=== PATIENT | male | born 1930 | race Caucasian/White ===

== ENCOUNTER 2016-12-10 18:22 | Inpatient (IN) | payer OTHER, MEDICAID ==
[~2016-12-10] VITALS: Ht 170.2 cm; Wt 95.3 kg
--- NOTE | 2016-12-10 18:22 | NUR ---
Patient to ER bed 1 to gown for evaluation. Side rails up. Report given to Tiffany PEDRAZA.
--- NOTE | 2016-12-10 18:30 | NUR ---
[facility] for left hip pain 03/15 possible femur fracture. Patient has advanced dementia, poor historian, uncomprehensive sentences, appears to be bedbound, incontinent. 83-86% on room air. Patient placed on 2 L nasal cannula with increased to 94-96%. No acute distress.
--- NOTE | 2016-12-10 18:37 | NUR ---
ER MD Darnell at bedside for evaluation
[2016-12-10 18:41] VITALS: BP 189/82; PULSE 79; RESP 18; TEMP 97.6; O2SAT 95
[2016-12-10] MEDS ORDERED: DONE10TA44 PO (18:52)
[2016-12-10] MEDS ORDERED: CLOP75TA2 PO (18:52)
[2016-12-10] MEDS ORDERED: DIVA125C4 PO ×2 (18:52)
[2016-12-10] MEDS ORDERED: AMLO5TAB4 PO (18:52)
[2016-12-10] MEDS ORDERED: ACET-2165 PO (18:52)
[2016-12-10] MEDS ORDERED: MULT PO (18:52)
[2016-12-10] MEDS ORDERED: NA P118E RC (18:52)
[2016-12-10] MEDS ORDERED: ARTT OP (18:52)
[2016-12-10] MEDS ORDERED: DULR10 RC (18:52)
[2016-12-10] MEDS ORDERED: MAGN400O4 PO (18:52)
[2016-12-10] MEDS ORDERED: ASPI81TA2 PO (18:52)
[2016-12-10] MEDS ORDERED: LIP10 PO (18:52)
[2016-12-10] MEDS ORDERED: TAMS0.4C96 PO (18:52)
[2016-12-10] MEDS ORDERED: PSYL3.4P6 PO (18:52)
[2016-12-10] MEDS ORDERED: LOSA50TA3 PO (18:52)
[2016-12-10] MEDS ORDERED: BRI.2% OP (18:52)
--- NOTE | 2016-12-10 18:52 | NUR ---
Medication reconciliation completed with information provided by - list from facility. Any prior medication reconciliation on file was reviewed and corrected.
[2016-12-10 19:22] LABS: BASOPHILS # (AUTO) 0.1 K/uL (0.0-0.2); BASOPHILS % (AUTO) 0.5 % (0.0-2.0); EOSINOPHILS # (AUTO) 0.1 K/uL (0.0-0.4); EOSINOPHILS % (AUTO) 0.7 % (0.0-4.0); HEMATOCRIT 35.8 % (36-54); HEMOGLOBIN 12.2 g/dL (14.0-18.0); LYMPHOCYTES # (AUTO) 0.8 K/uL (1.0-5.5); LYMPHOCYTES % (AUTO) 6.4 % (20.5-51.5); MEAN CORPUSCULAR HEMOGLOBIN 27 pg (27-31); MEAN CORPUSCULAR HGB CONC 34 % (32-36); MEAN CORPUSCULAR VOLUME 78 fL (79.0-98.0); MONOCYTES # (AUTO) 1.4 K/uL (0.0-1.0); MONOCYTES % (AUTO) 11.5 % (1.7-9.3); NEUTROPHILS # (AUTO) 10.2 K/uL (1.8-7.7); NEUTROPHILS % (AUTO) 80.9 % (40.0-70.0); PLATELET COUNT (AUTO) 246 K/uL (130-430); RED BLOOD CELL COUNT(AUTO) 4.57 MIL/uL (4.2-6.2); RED CELL DISTRIBUTION WIDTH 15.2 % (9.0-15.0); WHITE BLOOD COUNT (AUTO) 12.6 K/uL (4.8-10.8)
[2016-12-10 19:45] LABS: ANION GAP 8 (5-15); CALCIUM 8.6 mg/dL (8.4-11.0); CHLORIDE 104 mmol/L (98-107); CREATININE 1.33 mg/dL (0.55-1.30); GLUCOSE 126 mg/dL (70-99); POTASSIUM 4.2 mmol/L (3.5-5.1); SODIUM SERUM 138 mmol/L (136-145); UREA NITROGEN, BLOOD 28 mg/dL (8-21)
[2016-12-10 19:50] LABS: ALANINE AMINOTRANSFERASE 33 U/L (12-78); ALBUMIN 3.7 g/dL (3.4-4.8); ASPARTATE AMINOTRANSFERASE 32 U/L (10-37); TOTAL BILIRUBIN 0.6 mg/dL (0.0-1.0); TOTAL PROTEIN, SERUM 7.9 g/dL (6.4-8.3)
--- NOTE | 2016-12-10 20:00 | NUR ---
ER MD aware of VS
[2016-12-10] MEDS ORDERED: hydrALAZINE HCL 20 MG/ML VIAL IVP ONE (20:15)
[2016-12-10] MEDS ORDERED: METOPROLOL TARTRATE 5 MG/5 ML VIAL ONE (20:40)
[2016-12-10] MEDS ORDERED: METOPROLOL TARTRATE 5 MG/5 ML VIAL IVP ONE ×2 (20:45)
[2016-12-10] MEDS ORDERED: METOPROLOL TARTRATE 5 MG/5 ML VIAL IVP PRN ×2 (20:45→21:00)
[2016-12-10] MEDS ORDERED: HYDROmorphone 2 MG/ML VIAL IVP PRN ×2 (20:45→21:00)
--- NOTE | 2016-12-10 20:45 | NUR ---
Patient will be admitted to care of DR VILLEGAS. Admitted to [facility] IN unit. Will go to room 135. Belongings list completed. Summary report printed. Report given to MILO.
--- NOTE | 2016-12-10 20:53 | NUR ---
Transfer to [facility]. IV present no sign or symptom of infiltration.
--- NOTE | 2016-12-10 21:10 | NUR ---
ADMIT NOTE Received pt from ER to the floor with a diagnosis of Left hip fracture. Admission process initiated. patient oriented to pain management, safety and call light-teach back done.
--- NOTE | 2016-12-10 21:15 | NUR ---
initial nursing notes: Patient is awake. Patient is oriented only to his name. Patient has a right forearm IV access. Kept siderails up X 3 for patient's safety.
[2016-12-10 21:25] VITALS: BP 202/93; PULSE 94; RESP 18; TEMP 97.8; O2SAT 91
[2016-12-10] MEDS ORDERED: BISACODYL 10 MG/SUPPOSITORY RC PRN (21:30)
[2016-12-10] MEDS ORDERED: ACETAMINOPHEN 325 MG TABLET PO PRN (21:30)
[2016-12-10] MEDS ORDERED: MILK OF MAGNESIA 30 ML UDC PO PRN (21:30)
[2016-12-10] MEDS ORDERED: TEARS ARTIFICIAL 15 ML DROPS OP PRN (21:30)
[2016-12-10] MEDS ORDERED: MORPHINE 2 MG/ML INJ. SYRINGE IVP PRN (21:30)
[2016-12-10] MEDS ORDERED: NA PHOS,M-B/NA PHOS,DI-BA 118 ML (FLEET ENEMA) RC PRN (21:30)
[2016-12-10] MEDS ORDERED: BRIMONIDINE TARTRATE 0.2% 5 mL EYE DROPS OP ONE (22:00)
[2016-12-10] MEDS ORDERED: LOSARTAN POTASSIUM 50 MG TABLET (COZAAR) PO ONE (22:00)
[2016-12-10] MEDS: DIVALPROEX SODIUM 125 MG CAP.(DEPAKOTE SPRINKLE) PO SCH (22:11)
--- NOTE | 2016-12-10 22:11 | NUR ---
Consult Called Was consult called? Yes Reason for Consultation: Cardio Clearance Before Surgery Person who was notified: Cece Consulting Physician: Preston Mckeon MD (Dr. Doan material controller) Sql Etl Developer Specialty: Work From
--- NOTE | 2016-12-10 22:17 | NUR ---
Consult Called Reason for Consultation: Left Hip Fracture Was consult Call: Yes Person who was notified: Consulting Physician: Antonino Renee MD (Dr. Molina vocational guidance counselor) Physical Education Specialist Specialty: Ortho Physical Education Specialist
--- NOTE | 2016-12-10 23:15 | NUR ---
nursing rounds: Patient is incontinent of bowel and bladder. Patient was cleaned. Bedsheets were changed.
[2016-12-11] MEDS ORDERED: D5/0.45 NS 1,000 ML IV SCH
[2016-12-11] MEDS: D5/0.45 NS 1,000 ML IV SCH ×2 (00:12→16:50)
[2016-12-11 00:22] VITALS: BP 175/92; PULSE 90; RESP 18; TEMP 97.8; O2SAT 93
--- NOTE | 2016-12-11 01:15 | NUR ---
nursing rounds: Patient is asleep. Patient has no shortness of breath.
--- NOTE | 2016-12-11 03:15 | NUR ---
nursing rounds: Patient is sleeping in bed. Patient has no respiratory distress.
--- NOTE | 2016-12-11 05:15 | NUR ---
nursing rounds: Patient urinated and had a bowel movement in bed. Patient was cleaned. Bedsheets were changed.
[2016-12-11 06:26] LABS: BASOPHILS # (AUTO) 0.1 K/uL (0.0-0.2); BASOPHILS % (AUTO) 0.7 % (0.0-2.0); EOSINOPHILS # (AUTO) 0.3 K/uL (0.0-0.4); HEMOGLOBIN 12.3 g/dL (14.0-18.0); LYMPHOCYTES # (AUTO) 1.2 K/uL (1.0-5.5); LYMPHOCYTES % (AUTO) 11.3 % (20.5-51.5); MEAN CORPUSCULAR HEMOGLOBIN 26 pg (27-31); MEAN CORPUSCULAR HGB CONC 33 % (32-36); MEAN CORPUSCULAR VOLUME 79 fL (79.0-98.0); MONOCYTES # (AUTO) 1.4 K/uL (0.0-1.0); MONOCYTES % (AUTO) 12.6 % (1.7-9.3); NEUTROPHILS % (AUTO) 72.4 % (40.0-70.0); PLATELET COUNT (AUTO) 227 K/uL (130-430); RED CELL DISTRIBUTION WIDTH 14.7 % (9.0-15.0)
[2016-12-11 06:43] LABS: ALANINE AMINOTRANSFERASE 31 U/L (12-78); ALBUMIN 3.4 g/dL (3.4-4.8); ANION GAP 7 (5-15); ASPARTATE AMINOTRANSFERASE 25 U/L (10-37); CALCIUM 8.5 mg/dL (8.4-11.0); CHLORIDE 105 mmol/L (98-107); GLUCOSE 108 mg/dL (70-99); POTASSIUM 3.8 mmol/L (3.5-5.1); SODIUM SERUM 137 mmol/L (136-145); TOTAL BILIRUBIN 0.9 mg/dL (0.0-1.0); TOTAL PROTEIN, SERUM 7.6 g/dL (6.4-8.3); UREA NITROGEN, BLOOD 25 mg/dL (8-21)
--- NOTE | 2016-12-11 07:39 | NUR ---
Nutrition Update David Scale 15 noted. Pt admitted for L hip pain. Diet: NPO BMI: 32.9 kg/m2 RD to follow per nutrition care standards.
--- NOTE | 2016-12-11 07:45 | NUR ---
Neurovascular Patient is /awake oriented to his name withdrawn/combative at times , denies any hip pain , able to move both legs , little bit shorter left leg with good peripheral sensation, capillary refill less than 3 seconds, dorsalis pedis pulse both positive, sponge bath given , no sign of pressure sore , needs attended refused to be turned ,kept NPO FOR possible surgery Iv fluid infusing.
--- NOTE | 2016-12-11 07:52 | NUR ---
closing nursing notes: Patient is awake and alert. Patient is in no acute respiratory distress. No episodes of fall and no injuries throughout the shift commander. Provided nursing report to incoming morning shift nurse, MILO Xavier, at patient's bedside.
[2016-12-11] MEDS ORDERED: TEARS ARTIFICIAL 15 ML DROPS OP PRN (07:56)
[2016-12-11 08:26] VITALS: BP 145/99; PULSE 91; RESP 18; TEMP 97.4; O2SAT 95
[2016-12-11] MEDS: BRIMONIDINE TARTRATE 0.2% 5 mL EYE DROPS OP SCH ×2 (08:46→21:58)
[2016-12-11] MEDS: ASPIRIN 81 MG TAB.CHEW PO SCH (08:46)
[2016-12-11] MEDS: amLODIPine BESYLATE 5 MG TABLET PO SCH (08:47)
[2016-12-11] MEDS: LOSARTAN POTASSIUM 50 MG TABLET (COZAAR) PO SCH (08:48)
[2016-12-11] MEDS: MULTIVITAMINS TAB 1 TABLET PO SCH (08:48)
[2016-12-11] MEDS: DIVALPROEX SODIUM 125 MG CAP.(DEPAKOTE SPRINKLE) PO SCH ×2 (08:48→21:43)
[2016-12-11] MEDS: PSYLLIUM HUSK 1 PKT PACKET PO SCH ×2 (09:00→21:43)
[2016-12-11] MEDS ORDERED: BRIMONIDINE TARTRATE 0.2% 5 mL EYE DROPS OP SCH (09:00)
--- NOTE | 2016-12-11 09:41 | NUR ---
Spoke to and daughter Jai for possible surgery in the afternoon , surgeon needs to talk to them to explain the need for surgery , will be here in the hospital , verbalized understanding.
--- NOTE | 2016-12-11 10:40 | NUR ---
PICKENS CATH: #Bladder is distended , no urine output since admission, seen and examined by dr. Mckeon with order to insert pickens catheter , explained the procedure to patient, 16 FR Pickens catheter with 10 cc bulb inserted with use of sterile technique. Bulb inflated with 10 cc sterile water. Immediate return of 200 cc clear yellow urine noted. Bedside drainage bag placed below level of bladder. Urine sample collected and sent to lab. Pt tolerated procedure .
[2016-12-11 11:01] LABS: BILIRUBIN,URINE NEGATIVE (NEGATIVE); BLOOD, URINE 3+ (NEGATIVE); CLARITY/URINE CLEAR (CLEAR); COLOR,URINE YELLOW (YELLOW); GLUCOSE,URINE NEGATIVE (NEGATIVE); KETONES,URINE NEGATIVE (NEGATIVE); LEUKOCYTE ESTERASE ,URINE NEGATIVE (NEGATIVE); NITRITE, URINE NEGATIVE (NEGATIVE); PH,URINE 6.5 (5.0-8.0); PROTEIN URINE 1+ (NEGATIVE)
[2016-12-11 11:13] LABS: BACTERIA,URINE RARE /HPF (None Seen); RBC,URINE 20-50 /HPF (0-3); WBC,URINE 0-3 /HPF (0-3)
[2016-12-11 12:12] VITALS: BP 137/65; PULSE 78; RESP 20; TEMP 98; O2SAT 95
--- NOTE | 2016-12-11 14:32 | NUR ---
Dr. Renee/DR. stanton spoke to Jasmyn Burch , gave the medical history , fell like 3 mos ago wheelchair bound,confused, decided not to do the surgery., Dr. gilbert hsu.
--- NOTE | 2016-12-11 15:37 | NUR ---
Patient resting no sign of acute pain , will continue to monitor.
--- NOTE | 2016-12-11 15:48 | NUR ---
Paged Dr. Rider twice regarding patient
[2016-12-11 16:20] VITALS: BP 135/70; PULSE 72; RESP 18; TEMP 97.8; O2SAT 96
--- NOTE | 2016-12-11 17:45 | NUR ---
Assisted in feeding unable to tolerate mechanical soft diet no dentures, tried pureed tolerates well no aspiration., Dr. EDWARD informed.
--- NOTE | 2016-12-11 19:35 | NUR ---
initial nursing notes: Patient is awake. Patient has a left hip fracture. Patient has IV fluid infusing on the right forearm IV access. Kept siderails up X 3 for patient's safety.
[2016-12-11 19:43] VITALS: BP 148/83; PULSE 98; RESP 17; TEMP 98.5; O2SAT 95
--- NOTE | 2016-12-11 21:35 | NUR ---
nursing rounds: Patient is awake. Patient is oriented only to his name only. Reoriented patient to place, time and reason for being in the hospital.
[2016-12-11] MEDS: TAMSULOSIN HCL 0.4 MG CAP PO SCH (21:42)
[2016-12-11] MEDS: ATORVASTATIN 10 MG TABLET PO SCH (21:42)
[2016-12-11] MEDS: DONEPEZIL HCL 5 MG TABLET (ARICEPT) PO SCH (21:46)
--- NOTE | 2016-12-11 23:35 | NUR ---
nursing rounds: Patient is asleep. Patient has no shortness of breath.
[2016-12-12] VITALS (7 sets, daily range): BP systolic 141–162; BP diastolic 69–89; PULSE 69–98; RESP 16–20; TEMP 96.9–98.6; O2SAT 94–97
--- NOTE | 2016-12-12 01:35 | NUR ---
nursing rounds: Patient is sleeping in bed. Patient has no respiratory distress.
--- NOTE | 2016-12-12 03:35 | NUR ---
nursing rounds: Patient urinated and had a bowel movement in bed. Patient was cleaned. Bedsheets were changed.
--- NOTE | 2016-12-12 05:35 | NUR ---
nursing rounds: Patient asleep in bed. Kept bed alarm on. Patient has no falls and no injuries.
[2016-12-12] MEDS: D5/0.45 NS 1,000 ML IV SCH ×2 (07:04→18:54)
--- NOTE | 2016-12-12 07:30 | NUR ---
INITIAL NOTE RECEIVED PATIENT FROM VP INFORMATION TECHNOLOGY NURSE, PATIENT IS RESTING IN BED WITH EYES CLOSED, NO SIGNS OF DISTRESS, BREATHING IS EVEN AND UNLABORED, ASSESSMENT COMPLETE, PATIENT HAS IV ON RIGHT FOREARM GAUGE 22 WITH IV FLUIDS INFUSING, NO SIGNS OF INFILTRATION NOTED, PATIENT HAS LEFT HIP FRACTURE, REORIENTED PATIENT TO ROOM AND HOW TO USE CALL MACKEY FOR ASSISTANCE,BED IS IN LOWEST POSITION, THREE SIDE RAILS UP, BED ALARM ON, PATIENT IS CLOSE TO NURSING STATION, HOB ELEVATED, FALL AND ASPIRATION PRECAUTIONS IN PLACE, WILL CONTINUE TO MONITOR PATIENT.
--- NOTE | 2016-12-12 08:11 | NUR ---
closing nursing notes: Patient is awake and alert. Patient is in no acute respiratory distress. No episodes of fall and no injuries throughout the shift coordinator. Provided nursing report to incoming morning shift nurse, MILO Son, at patient's bedside.
[2016-12-12] MEDS: DIVALPROEX SODIUM 125 MG CAP.(DEPAKOTE SPRINKLE) PO SCH ×2 (09:27→20:48)
[2016-12-12] MEDS: ASPIRIN 81 MG TAB.CHEW PO SCH (09:27)
[2016-12-12] MEDS: MULTIVITAMINS TAB 1 TABLET PO SCH (09:27)
[2016-12-12] MEDS: amLODIPine BESYLATE 5 MG TABLET PO SCH (09:31)
[2016-12-12] MEDS: LOSARTAN POTASSIUM 50 MG TABLET (COZAAR) PO SCH (09:32)
[2016-12-12] MEDS: PSYLLIUM HUSK 1 PKT PACKET PO SCH ×2 (09:32→20:48)
[2016-12-12] MEDS: BRIMONIDINE TARTRATE 0.2% 5 mL EYE DROPS OP SCH ×2 (09:34→20:46)
--- NOTE | 2016-12-12 09:35 | NUR ---
MEDICATIONS PATIENT WAS GIVEN MORNING MEDICATIONS, TOLERATED WELL, WILL CONTINUE TO MONITOR PATIENT, BED IN LOWEST POSITION, BED ALARM ON, CALL MACKEY LEFT NEXT TO PATIENT'S HAND, THREE SIDE RAILS UP, FALL PRECAUTIONS IN PLACE.
--- NOTE | 2016-12-12 11:30 | NUR ---
RN ROUNDS PATIENT IS RESTING IN BED, NO SIGNS OF DISTRESS OR DISCOMFORT, WILL CONTINUE TO MONITOR PATIENT, FALL PRECAUTIONS IN PLACE
--- NOTE | 2016-12-12 13:35 | NUR ---
RN ROUNDS PATIENT IS CURRENTLY LYING IN BED, NO SIGNS OF DISTRESS OR DISCOMFORT, WILL CONTINUE TO MONITOR PATIENT, BED IN LOWEST POSITION, BED ALARM ON, FALL PRECAUTIONS IN PLACE.
--- NOTE | 2016-12-12 13:41 | NUR ---
DC PLANNING: RECEIVED THE DC ORDER FROM DR. VILLEAGS TO DC PT TO SNF. CALLED AND VERIFIED W/ PT'S -RICHI WHERE IS THE SNF PT CAME FROM SHE SAID [facility] NOT [facility]. CALLED [facility] TEL# [phone] S/W SAM-DIRECTOR CHANNEL--ACCORDING TO HIM PT'S ROOM IS UNDER REPAIR BECAUSE THERE IS A WATER LEAK. IT WILL BE AVAILABLE TOMORROW, HE WILL CALL PT'S TO EXPLAIN. Addendum: 12/12/16 at 1417 by Kaylynn MAHARAJ Placed transportation packet in nurse station. Pending bed availability.
--- NOTE | 2016-12-12 14:00 | NUR ---
RN ROUNDS Patient's IV is currently not flushing, tried to reinsert IV in patient, patient becomes combative, reoriented patient, patient still continues to fight, will attempt later
--- NOTE | 2016-12-12 15:00 | NUR ---
DR. VILLEGAS called Dr. Villegas to notify him that patient will be discharged tomorrow due to facility not having patient's room ready, awaiting call back.
--- NOTE | 2016-12-12 15:45 | NUR ---
RN ROUNDS PATIENT IS CURRENTLY LYING IN BED WITH EYES CLOSED, WILL CONTINUE TO MONITOR PATIENT, BED IN LOWEST POSITION, BED ALARM ON, FALL PRECAUTIONS IN PLACE.
--- NOTE | 2016-12-12 17:34 | NUR ---
RN ROUNDS patient is currently resting in bed, no signs of distress or discomfort, fall precautions in place, will continue to monitor patient.
--- NOTE | 2016-12-12 18:30 | NUR ---
CLOSING NOTE PATIENT IS CURRENTLY RESTING IN BED, NO SIGNS OF DISTRESS OR DISCOMFORT, ALL NEEDS MET, WILL ENDORSE PATIENT TO SURGICAL ASST NURSE, BED LEFT IN LOWEST POSITION, CALL MACKEY LEFT WITHIN REACH OF PATIENT'S HAND, THREE SIDE RAILS UP, HOB ELEVATED, BED ALARM ON, FALL PRECAUTIONS IN PLACE.
--- NOTE | 2016-12-12 20:00 | NUR ---
Initial Notes Received patient resting in bed with eyes closed, easily aroused to name. Patient confused, irritable and uncooperative. Vital signs stable. Patient denies any acute distress or pain when asked. Breathing even and unlabored on room air. IV site to right forearm patent/clean/dry. Attempted to educate patient on use of call light for assistance and fall precautions, patient unable at this time. Call light in hand, will continue to monitor. Patient to be discharged back to SNF tomorrow when bed available, MD aware per prior nurse.
[2016-12-12] MEDS: ATORVASTATIN 10 MG TABLET PO SCH (20:46)
[2016-12-12] MEDS: TAMSULOSIN HCL 0.4 MG CAP PO SCH (20:47)
[2016-12-12] MEDS: DONEPEZIL HCL 5 MG TABLET (ARICEPT) PO SCH (20:47)
--- NOTE | 2016-12-12 22:24 | NUR ---
Paged Dr. Maldonado, call number [phone]
--- NOTE | 2016-12-12 22:45 | NUR ---
Rounds and Handoff Patient resting in bed with eyes closed, easily aroused, no change in mentation. Patient denies any acute distress or pain at this time. Breathing even and unlabored. IV site patent/clean/dry. Incontinence care and bed bath provided with PAINTER INTERIOR FINISH. Call light in hand, fall precautions in place. Paged Dr. Inman for orders to hold discharge till bed available at SNF. Endorsed all patient care/needs to Anai PEDRAZA.
--- NOTE | 2016-12-12 23:00 | NUR ---
Rounds Pt is resting comfortably in bed and not in nay distress. No c/o pain or discomfort and no facial grimacing noted. Pt is oriented to his name only. IVF of D51/2NS is infusing well in in his RFA at 70ml/hr without any signs of infiltration at the IV site. Fall and safety precautions are in place. Call light is with pt and bed alarm is on. Bed is in the lowest and locked positions. Three side rails are up. Will continue to monitor pt.
[2016-12-13 00:41] VITALS: BP 152/81; PULSE 94; RESP 19; TEMP 100.2; O2SAT 95
--- NOTE | 2016-12-13 01:05 | NUR ---
Fever Temp 100.2. Tylenol 650mg given po. Ice packs applied to pt's underarms, chest and forehead. Will continue to monitor pt.
--- NOTE | 2016-12-13 02:00 | NUR ---
Temperature Recheck Temp 98.6. IVF is infusing well in RFA.
--- NOTE | 2016-12-13 04:00 | NUR ---
Rounds Pt is sleeping without any distress noted. Fall and safety precautions are in place. IVF is infusing well.
[2016-12-13 04:45] VITALS: BP 146/74; PULSE 78; RESP 20; TEMP 98.4; O2SAT 100
--- NOTE | 2016-12-13 06:30 | NUR ---
Closing Note Pt is sleeping comfortably in bed. All pt's needs were attended to. No fall or injury noted this shift. Will endorse to day shift nurse.
--- NOTE | 2016-12-13 07:20 | NUR ---
AM ROUNDS PATIENT RESTING IN BED, AWAKE, ALERT AND ORIENTED X1, REORIENTED TO PLACE, TIME AND EVENT, DENIES PAIN, ASSESSMENT COMPLETE, STABLE CONDITION AT THIS TIME, EDUCATED POLYTECHNIC REGISTRAR LIGHT SYSTEM AND TO CALL FOR ANY ASSISTANCE, PATIENT STATED OK, BED CLOSE TO NURSE'S STATION, BED ALARM ON, FALL AND ASPIRATION PRECAUTIONS IN PLACE, WILL CONTINUE TO MONITOR.
[2016-12-13 08:00] VITALS: BP 138/79; PULSE 82; RESP 16; TEMP 97.3; O2SAT 95
[2016-12-13] MEDS: amLODIPine BESYLATE 5 MG TABLET PO SCH (08:42)
[2016-12-13] MEDS: LOSARTAN POTASSIUM 50 MG TABLET (COZAAR) PO SCH (08:42)
[2016-12-13] MEDS: ASPIRIN 81 MG TAB.CHEW PO SCH (08:42)
[2016-12-13] MEDS: MULTIVITAMINS TAB 1 TABLET PO SCH (08:42)
[2016-12-13] MEDS: DIVALPROEX SODIUM 125 MG CAP.(DEPAKOTE SPRINKLE) PO SCH (08:43)
[2016-12-13] MEDS: D5/0.45 NS 1,000 ML IV SCH (08:43)
[2016-12-13] MEDS: PSYLLIUM HUSK 1 PKT PACKET PO SCH (08:43)
[2016-12-13] MEDS: BRIMONIDINE TARTRATE 0.2% 5 mL EYE DROPS OP SCH (08:43)
--- NOTE | 2016-12-13 08:45 | NUR ---
RN ROUNDS PATIENT RESTING IN BED ,AWAKE, DENIES, PAIN, EDUCATED ON MEDICATIONS AND POTENTIAL SIDE EFFECTS, PATIENT STATED OK, CRUSHED MEDICATIONS AND PLACED IN YOGURT, PATIENT TOLERATED WELL, NO OTHER NEEDS AT THIS TIME, BED IN LOWEST POSITION, THREE SIDE RAILS UP, BED ALARM ON, FALL AND ASPIRATION PRECAUTIONS IN PLACE, BED CLOSE TO NURSE'S STATION, WILL CONTINUE TO MONITOR.
--- NOTE | 2016-12-13 10:13 | NUR ---
DC PLANNING: RECEIVED DC ORDER FROM MD TO DC PT BACK TO [facility] ROOM 48-A, PLS GIVE REPORT TO RN TEL# [phone], RICHI AGREEABLE TO THE DISCHARGE. PACKET AT THE NURSE'S STATION, LAVINIA PEDRAZA AWARE.
--- NOTE | 2016-12-13 10:20 | NUR ---
RN ROUNDS PATIENT RESTING IN BED, EYES CLOSED, BREATHING IS EVEN AND UNLABORED, NO SIGNS OF DISTRESS, BED IN LOWEST POSITION, THREE SIDE RAILS UP, BED ALARM ON, FALL AND ASPIRATION PRECAUTIONS IN PLACE, WILL CONTINUE TO MONITOR.
[2016-12-13 10:30] VITALS: BP 148/83; PULSE 87; RESP 17; TEMP 96.6; O2SAT 100
[2016-12-13 10:53] VITALS: BP 138/79; PULSE 82; RESP 16; TEMP 97.3; O2SAT 95
--- NOTE | 2016-12-13 11:24 | NUR ---
PT TRANSFERRED Report given to ARLENE PEDRAZA at [facility]. Transfer packet with Transfer Orders and Medication Reconciliation form given to EMT with report. Exitcare provided. [facility] ID band removed, replaced with ID band with pt's name and . All belongings sent with patient. Patient left floor via gurney escorted by EMT in no distress.
== END 2016-12-13 11:23 | DRG 543 ==
LOC: SED 18:22 → SMU 20:31 → SED 20:55 → SMU 21:23
PROVIDERS: ADMIT Family Medicine; ATTEND Family Medicine
DX: M80.052A Age-related osteoporosis with current pathological fracture, left femur, initial encounter for fracture (principal); I69.354 Hemiplegia and hemiparesis following cerebral infarction affecting left non-dominant side; I50.9 Heart failure, unspecified; I11.0 Hypertensive heart disease with heart failure; E78.5 Hyperlipidemia, unspecified; N40.0 Benign prostatic hyperplasia without lower urinary tract symptoms; I48.0 Paroxysmal atrial fibrillation; H40.9 Unspecified glaucoma; M19.90 Unspecified osteoarthritis, unspecified site; G20 Parkinson's disease; F02.80 Dementia in other diseases classified elsewhere, unspecified severity, without behavioral disturbance, psychotic disturbance, mood disturbance, and anxiety; Z87.891 Personal history of nicotine dependence; W18.39XA Other fall on same level, initial encounter; Y93.89 Activity, other specified; Y92.89 Other specified places as the place of occurrence of the external cause; Y99.8 Other external cause status
CPT/HCPCS: 36415; 71010; 73502; 80053; 81000-TC; 83880; 84484; 85025; 85610-TC; 86886; 86900; 86901; 86920; 87081; 93005; 93306; J0360; J3490